=== PATIENT | female | born 1955 | race Caucasian/White ===

== ENCOUNTER 2020-06-06 13:00 | Outpatient (RCR) | payer MEDICARE, BC, SELFPAY | END 2020-07-04 08:42 | disposition home or self-care (01) | LOC: PT.CARL 13:00 | PROVIDERS: Visit Provider Nurse Practitioner Family | DX: M54.5 Low back pain (principal); M53.3 Sacrococcygeal disorders, not elsewhere classified | CPT/HCPCS: 97010; 97014; 97110; 97140; 97163; G0283 ==

== ENCOUNTER → 2021-10-03 11:01 | Outpatient (CLI) | payer MEDICARE, BC, SELFPAY ==
--- NOTE | 2021-10-03 11:08 | XR_ITS ---
PROCEDURE: XR KUB CLINICAL INDICATION: KIDNEY STONE COMPARISON: No exams were available for comparison FINDINGS: Prior cholecystectomy. A faint linear density is noted over the lower pole of the left kidney at 5 mm and could be due to small stone. This area is somewhat obscured by overlying bowel. 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 Pelvic calcifications are present and may be due to phleboliths. IMPRESSION: Possible left nephrolithiasis Dictated by: Henrique Shrestha MD 10/03/2021 11:45 Henrique Shrestha MD in [place] 10/03/2021 11:45
== END ==
PROVIDERS: PCP Nurse Practitioner Family; Visit Provider Urology
DX: N20.0 Calculus of kidney (principal)
CPT/HCPCS: 74018